=== PATIENT | male | born 1980 | race African-American/Black ===

== ENCOUNTER 2021-10-25 16:52 | Emergency (ER) | payer SELFPAY ==
[~2021-10-25] VITALS: Ht 172.7 cm; Wt 101.9 kg
[2021-10-25] MEDS ORDERED: INSULIN REGULAR, HUMAN 100 UNIT/1 ML IV STA (17:33)
[2021-10-25] MEDS ORDERED: SODIUM CHLORIDE 0.9% 1000ML 1,000 ML IV STA (17:33)
[2021-10-25] MEDS ORDERED: SODIUM CHLORIDE 0.9% 1000ML 1,000 ML ONE (18:02)
[2021-10-25] MEDS ORDERED: INSULIN REGULAR, HUMAN 100 UNIT/1 ML ONE (18:03)
[2021-10-25] MEDS ORDERED: CEPHALEXIN500 MG PO (19:11)
[2021-10-25] MEDS ORDERED: BACTRIM DS TAB1 EACH PO (19:11)
[2021-10-25] MEDS ORDERED: METFORMIN HCL500 MG PO (19:11)
== END 2021-10-25 20:12 | disposition home or self-care (01) ==
LOC: FSED 17:06
DX: L02.416 Cutaneous abscess of left lower limb (principal); E11.65 Type 2 diabetes mellitus with hyperglycemia; E66.9 Obesity, unspecified; Z79.84 Long term (current) use of oral hypoglycemic drugs; Z68.34 Body mass index [BMI] 34.0-34.9, adult
CPT/HCPCS: 10060; 36415; 71045; 82948; 99283; J1817; J7030